=== PATIENT | male | born 1950 | race Caucasian/White ===

== ENCOUNTER 2018-08-29 20:16 | Inpatient (IN) | payer MEDICARE ==
[~2018-08-29] VITALS: Ht 188 cm; Wt 88.0 kg
--- NOTE | 2018-08-29 20:23 | NUR ---
PT BIB [facility] FROM HOME FOR SYNCOPAL EPISODE X 1 ABOUT 30 MIN AGO. PT A/OX4, RESPONSIVE TO VERBAL AND TACTILE STIMULI. PER PARAMEDICS, PT HAD A SYNCOPAL EPISODE WHILE ARGUING W/ HIS SON. VSS. PT APPEARS FLUSHED (STATES HE DRANK 2 GLASSES OF WINE PRIOR TO ARRIVAL) AND PRESENTS W/ AN ABRASION ON R FOREARM FROM THE FALL. PER , PT HIT HIS HEAD WHEN HE FAINTED. CANNOT RECALL HOW LONG THE LOC WAS, AND STATES HE WAS SNORING. Addendum: 08/29/18 at 2118 by KIERA PT IS A/OX4, BUT FORGETFUL AT TIMES.
--- NOTE | 2018-08-29 20:32 | NUR ---
Pt went down to radiology dept for CT scan. Pt on environmental monitoring technician. Accompanied by visitor services technician & RN.
--- NOTE | 2018-08-29 20:35 | NUR ---
PT TRANS TO RADIOLOGY FOR CT SCAN ON MONITOR BY RN.
--- NOTE | 2018-08-29 21:04 | NUR ---
SEIZURE PRECAUTIONS OBSERVED.
--- NOTE | 2018-08-29 21:07 | NUR ---
DIRECTOR OF ACCOUNTS RECEIVABLE AT BEDSIDE.
[2018-08-29] MEDS ORDERED: FINA5TAB3 PO (21:09)
[2018-08-29] MEDS ORDERED: METO25TA6 PO (21:09)
[2018-08-29] MEDS ORDERED: AMIO200T4 PO (21:09)
[2018-08-29] MEDS ORDERED: OLME20TA13 PO (21:09)
[2018-08-29] MEDS ORDERED: ALFU10TA PO (21:09)
[2018-08-29] MEDS ORDERED: ATOR10TA PO (21:09)
--- NOTE | 2018-08-29 21:18 | NUR ---
JOYA SILVA AT BEDSIDE FOR PT UPDATE.
--- NOTE | 2018-08-29 21:21 | NUR ---
C-SPINE PRECAUTIONS CLEARED BY JOYA SILVA.
[2018-08-29 21:25] LABS: BASOPHILS # (AUTO) 0.1 K/uL (0.0-8.0); EOSINOPHILS # (AUTO) 0.4 K/uL (0.0-0.7); EOSINOPHILS % (AUTO) 7.4 % (0.0-7.0); HEMATOCRIT 36.4 % (36.7-47.1); HEMOGLOBIN 12.8 g/dL (12.5-16.3); LYMPHOCYTES # (AUTO) 1.6 K/uL (20.0-40.0); LYMPHOCYTES % (AUTO) 27.8 % (20.5-51.5); MEAN CORPUSCULAR HGB CONC 35 g/dL (32.5-36.3); MEAN CORPUSCULAR VOLUME 96.8 fL (73.0-96.2); MONOCYTES # (AUTO) 0.5 K/uL (2.0-10.0); MONOCYTES % (AUTO) 8.2 % (0.0-11.0); NEUTROPHILS # (AUTO) 3.3 K/uL (1.8-8.9); NEUTROPHILS % (AUTO) 55.6 % (38.5-71.5); PLATELET COUNT (AUTO) 169 K/uL (152-348); RED BLOOD CELL COUNT(AUTO) 3.76 MIL/uL (4.06-5.63); WHITE BLOOD COUNT (AUTO) 5.9 K/uL (3.6-10.2)
--- NOTE | 2018-08-29 21:27 | NUR ---
CALLED CONSUELO, NURSING PHYSICAL SCIENCE AIDE FOR CCU BED.
[2018-08-29] MEDS ORDERED: LORAZEPAM 2 MG/1 ML VIAL ONE (21:29)
[2018-08-29 21:30] LABS: CREATININE 1.1 mg/dL (0.6-1.3); POTASSIUM 4.4 mmol/L (3.5-5.1)
[2018-08-29] MEDS ORDERED: LORAZEPAM 2 MG/1 ML VIAL IV ONE (21:30)
--- NOTE | 2018-08-29 21:38 | NUR ---
CLARIFICATION: PER , PT WAS IN A PHYSICAL STRUGGLE WITH HIS SON. WHILE HOLDING A SKATEBOARD OVER HIS HEAD, HE LOST HIS BALANCE AND FELL BACKWARDS, HITTING HIS HEAD ON THE PAVEMENT. SHE DESCRIBED A SEIZURE-LIKE ACTIVITY.
[2018-08-29 21:41] LABS: BILIRUBIN,DIRECT 0.1 mg/dL (0.0-0.2); BILIRUBIN,TOTAL 0.3 mg/dL (0.2-1.0); TOTAL PROTEIN, SERUM 6.6 g/dL (6.4-8.2)
--- NOTE | 2018-08-29 22:01 | NUR ---
Pt. admitted to CCU, under care of Dr. LAUREN APARICIO. DX ALOC Belongs List completed. REPORT GIVEN TO CCU AUGUSTINE MCNEAL.
--- NOTE | 2018-08-29 22:10 | NUR ---
Admitted 68 yr old male pt under the services of Dr. Thomas with Dx: Altered Mental Status/?Head Trauma. Pt remains in ER Room 1 bed location as CCU status for hospital convenience. Routine CCU admission care rendered. Please see admission profile for full assessment and clinical data.
[2018-08-29] MEDS ORDERED: MORPHINE SULFATE 4 MG/1 ML DISP.SYRIN IV PRN (22:15)
[2018-08-29] MEDS ORDERED: ENALAPRILAT DIHYDRATE 1.25 MG/1 ML VIAL IV PRN (22:15)
[2018-08-29] MEDS ORDERED: LORAZEPAM 2 MG/1 ML VIAL IV PRN ×2 (22:15)
[2018-08-29] MEDS ORDERED: ACETAMINOPHEN 325 MG TABLET PO PRN (22:15)
[2018-08-29] MEDS ORDERED: ONDANSETRON 4 MG/2 ML VIAL IV PRN (22:15)
[2018-08-29 22:30] VITALS: BP 127/82
--- NOTE | 2018-08-29 22:30 | NUR ---
Family remains at bedside. Pt awake and alert, does not remember about the fall but able to recall everything prior to incident. Expressing desire to go home but understands need to be observed closely.
[2018-08-29] MEDS ORDERED: MORPHINE SULFATE 2 MG/1 ML DISP.SYRIN ONE (22:49)
[2018-08-29 23:00] VITALS: BP 124/78
--- NOTE | 2018-08-29 23:00 | NUR ---
Seen and evaluated by Dr. Thomas. Plans of care discussed. Pt and family express adequate understanding and appreciation of care and info.
--- NOTE | 2018-08-29 23:05 | NUR ---
Morphine IV given for c/o neck pain, with immediate relief. Nursing comfort measures observed at all times.
[2018-08-29 23:30] VITALS: BP 115/71
[2018-08-29 23:59] VITALS: BP 118/75
[2018-08-30] VITALS (23 sets, daily range): BP systolic 104–146; BP diastolic 63–86
[2018-08-30] MEDS ORDERED: LORAZEPAM 2 MG/1 ML VIAL ONE (00:04)
--- NOTE | 2018-08-30 00:30 | NUR ---
Given Ativan IV per request for rest and relaxation, with adequate effect. Has been sleeping. No apparent acute distress. Fall and safety precautions observed at all times.
--- NOTE | 2018-08-30 02:00 | NUR ---
Monitor shows Sinus rhythm-Sinus Anthony with PACs. Brief episode of pulse ox reading 85% to 98% in an instant. Denies having been told about possible sleep apnea. Will continue to monitor.
--- NOTE | 2018-08-30 04:00 | NUR ---
Sleeping at periodic intervals. Wakes up to void on urinal and also for assessments. Neuro status remains intact, states able to remember more what happened and wants to go home to take care of family. Admits to soreness on back of neck but refuses med at this time. Instructed to inform RN FREDA for med. PRN. Continues to sleep.
[2018-08-30 04:49] LABS: BASOPHILS # (AUTO) 0.1 K/uL (0.0-8.0); BASOPHILS % (AUTO) 1.1 % (0.0-2.0); EOSINOPHILS # (AUTO) 0.4 K/uL (0.0-0.7); EOSINOPHILS % (AUTO) 8.4 % (0.0-7.0); HEMATOCRIT 34.5 % (36.7-47.1); HEMOGLOBIN 11.9 g/dL (12.5-16.3); LYMPHOCYTES # (AUTO) 1.7 K/uL (20.0-40.0); LYMPHOCYTES % (AUTO) 32.4 % (20.5-51.5); MEAN CORPUSCULAR HEMOGLOBIN 33.1 uug (23.8-33.4); MEAN CORPUSCULAR HGB CONC 35 g/dL (32.5-36.3); MEAN CORPUSCULAR VOLUME 95.9 fL (73.0-96.2); MONOCYTES # (AUTO) 0.5 K/uL (2.0-10.0); NEUTROPHILS # (AUTO) 2.6 K/uL (1.8-8.9); NEUTROPHILS % (AUTO) 49.1 % (38.5-71.5); PLATELET COUNT (AUTO) 155 K/uL (152-348); RED BLOOD CELL COUNT(AUTO) 3.59 MIL/uL (4.06-5.63); WHITE BLOOD COUNT (AUTO) 5.3 K/uL (3.6-10.2)
[2018-08-30 05:07] LABS: THYROID STIMULATING HORMONE 3.644 mIU/mL (0.358-3.740)
[2018-08-30 05:32] LABS: BILIRUBIN,TOTAL 0.4 mg/dL (0.2-1.0); CREATININE 0.9 mg/dL (0.6-1.3); MAGNESIUM 1.7 mg/dL (1.8-2.4); POTASSIUM 3.9 mmol/L (3.5-5.1); TOTAL PROTEIN, SERUM 5.7 g/dL (6.4-8.2)
--- NOTE | 2018-08-30 06:50 | NUR ---
Stable, uneventful night. Please see CCU flowsheet for trends and clinical data.
--- NOTE | 2018-08-30 07:50 | NUR ---
Pt transferred to CCU, Oriented to room. Alert and oriented x 3. No distress at this time. Pt offered breakfast but refused.
--- NOTE | 2018-08-30 08:00 | NUR ---
DOCTOR ALESSANDRA ORDERED ASA 325 ONE TIME DOSE DUE TO ELEVATED TROPONIN AND ECHO ORDERED AND REPEAT TROPONIN.
[2018-08-30] MEDS ORDERED: ASPIRIN EC 325 MG TABLET.DR PO ONE (09:00)
[2018-08-30] MEDS ORDERED: Medication Not On Formulary EA (Olmesartan Medoxomil (Benicar) 20 MG) PO SCH (09:00)
[2018-08-30] MEDS ORDERED: FINASTERIDE 5 MG TABLET PO SCH (09:00)
[2018-08-30] MEDS ORDERED: PANTOPRAZOLE SODIUM 40 MG VIAL IV SCH (09:00)
[2018-08-30] MEDS ORDERED: MAGNESIUM SULFATE/D5W 100 ML IV SCH (09:00)
[2018-08-30] MEDS ORDERED: LOSARTAN POTASSIUM 50 MG TABLET PO SCH (09:00)
[2018-08-30] MEDS ORDERED: AMIODARONE HCL 200 MG TABLET PO SCH (09:00)
--- NOTE | 2018-08-30 10:00 | NUR ---
WORKED WITH PT. PATIENT WALKED AROUND UNIT STEADY GAIT. PATIENT TOLERATED WELL.
--- NOTE | 2018-08-30 11:17 | NUR ---
MD at bedside examining patient
--- NOTE | 2018-08-30 11:22 | NUR ---
DOCTOR ALESSANDRA IS IN THE UNIT TO SEE PATIENT.
--- NOTE | 2018-08-30 11:44 | NUR ---
SYDNIE YOUSSEF PIG STICKER HERE TO EVALUATE PATIENT.
[2018-08-30] MEDS ORDERED: ASPIRIN 81 MG TAB.CHEW PO SCH (12:00)
--- NOTE | 2018-08-30 13:53 | NUR ---
Patient was received from the CCU unit. Pt was able to ambulate from CCU to room 220. Pt stated no dizziness while ambulating. Pt stated no pain at this time, no s/sx of SOB, distress or discomfort. Pt is able to verbalize needs. VS WNL.
[2018-08-30] MEDS ORDERED: ALFU10TA PO (17:41)
[2018-08-30] MEDS ORDERED: ASPI-612 PO (17:50)
--- NOTE | 2018-08-30 18:20 | NUR ---
PATIENT WAS DISCHARGED WITH ORDERS FROM DR. AGUILAR. PT WAS DISCHARGED HOME. PT VERBALIZED THAT HE IS AWARE OF BOTH HIS PRIMARY AND MANAGER SERVICING APPOINTMENTS. PER CASE MANAGEMENT DR VERGARA SPOKE TO THE PATIENT'S MAIN MANAGER SERVICING AND WILL FOLLOW UP WITH A HEART CATH ON AN OUT PATIENT BASES. IV LINE AND ID BAND REMOVED. PT STATES NO PAIN, DISTRESS, DISCOMFORT OR SOB. PT WAS WHEELED DOWNSTAIRS IN A WHEELCHAIR WHERE HIS AND DAUGHTER PICKED HIM UP. THE PATIENT SIGNED FOR HIS PERSONAL BELONGINGS LIST AND ALL ITEMS ACCOUNTED FOR, PT ALSO SIGNED HIS DISCHARGE DOCUMENTS
[2018-08-30] MEDS ORDERED: ALFUZOSIN HCL 10 MG TAB.SR.24H PO SCH (21:00)
[2018-08-30] MEDS ORDERED: ATORVASTATIN 10 MG TABLET PO SCH (21:00)
[2018-08-31] MEDS ORDERED: ASPIRIN 81 MG TAB.CHEW PO SCH (09:00)
== END 2018-08-30 18:20 | disposition home or self-care (01) | DRG 88 ==
LOC: ER 20:16 → CCU 22:09 → TELE 08-30 13:53
PROVIDERS: ADMIT Internal Medicine; ATTEND Internal Medicine
DX: S06.0X9A Concussion with loss of consciousness of unspecified duration, initial encounter (principal); I21.A1 Myocardial infarction type 2; I50.32 Chronic diastolic (congestive) heart failure; R56.1 Post traumatic seizures; I11.0 Hypertensive heart disease with heart failure; E78.5 Hyperlipidemia, unspecified; R40.2422 Glasgow coma scale score 9-12, at arrival to emergency department; W03.XXXA Other fall on same level due to collision with another person, initial encounter; Y93.89 Activity, other specified; Y92.014 Private driveway to single-family (private) house as the place of occurrence of the external cause; Y99.8 Other external cause status; I25.5 Ischemic cardiomyopathy; N40.0 Benign prostatic hyperplasia without lower urinary tract symptoms; Z73.3 Stress, not elsewhere classified; Z63.79 Other stressful life events affecting family and household; Z87.891 Personal history of nicotine dependence; Z86.73 Personal history of transient ischemic attack (TIA), and cerebral infarction without residual deficits; Z96.651 Presence of right artificial knee joint; Z98.1 Arthrodesis status; Z79.82 Long term (current) use of aspirin; I48.0 Paroxysmal atrial fibrillation; I25.10 Atherosclerotic heart disease of native coronary artery without angina pectoris; M50.31 Other cervical disc degeneration, high cervical region; E83.42 Hypomagnesemia; D64.9 Anemia, unspecified; I45.10 Unspecified right bundle-branch block; Z72.89 Other problems related to lifestyle; R55 Syncope and collapse
CPT/HCPCS: 36415; 70030-TC; 70450; 71045; 72125; 83735; 84100; 84443; 85025; 85730; 93005; 93307; A4663; C9113; G0378; G0480; J2060; J2270; J3475; J8499

== ENCOUNTER 2022-09-17 10:05 | Emergency (ER) | payer MEDICARE, BC ==
[~2022-09-17] VITALS: Ht 185.4 cm; Wt 83.9 kg
[~2022-09-17 10:05] MED LIST: ALFU10TA PO; AMIO200T5 PO; ASPI-612 PO; ATOR10TA PO; FINA5TAB3 PO; METO25TA6 PO; OLME20TA13 PO
--- NOTE | 2022-09-17 10:20 | NUR ---
Pt was triaged, pt ambulatory to room 1A, placed in gown for MSE.
[2022-09-17] MEDS ORDERED: APIX5TAB MT (10:38)
[2022-09-17] MEDS ORDERED: ACETAMINOPHEN 325 MG TABLET PO ONE (11:30)
[2022-09-17] MEDS ORDERED: NEOMY/BACITRA/POLYMYXIN B OINT UD PACKET TP ONE ×2 (11:30→11:41)
[2022-09-17] MEDS ORDERED: ACETAMINOPHEN 325 MG TABLET ONE (11:41)
--- NOTE | 2022-09-17 12:24 | NUR ---
DR HAILE EVALUATED THE PT.
[2022-09-17] MEDS ORDERED: HYDR-4209 PO (13:24)
--- NOTE | 2022-09-17 13:31 | NUR ---
PT WAS D/C'd TO HOME. D/C INSTRUCTIONS GIVEN TO THE PT BY DR HAILE.
--- NOTE | 2022-09-17 13:31 | NUR ---
Patient discharged to home in stable condition. Written and verbal after care instructions given. Patient verbalizes understanding of instructions. Stressed follow up or return to ER for worsening s/s.
== END 2022-09-17 13:32 | disposition home or self-care (01) ==
LOC: ER 10:05
DX: S22.41XA Multiple fractures of ribs, right side, initial encounter for closed fracture (principal); S51.801A Unspecified open wound of right forearm, initial encounter; W01.198A Fall on same level from slipping, tripping and stumbling with subsequent striking against other object, initial encounter; Y93.89 Activity, other specified; Y92.012 Bathroom of single-family (private) house as the place of occurrence of the external cause; I48.91 Unspecified atrial fibrillation; Z79.01 Long term (current) use of anticoagulants; Z79.82 Long term (current) use of aspirin; Z79.899 Other long term (current) drug therapy; I10 Essential (primary) hypertension; E78.5 Hyperlipidemia, unspecified; M19.90 Unspecified osteoarthritis, unspecified site
CPT/HCPCS: 71101; A4663